=== PATIENT | female | born 1955 | race Caucasian/White ===

== ENCOUNTER 2017-07-13 07:49 | Emergency (ER) | payer SELFPAY ==
--- NOTE | 2017-07-13 09:55 | ER Document Report ---
ED Fall - General Chief Complaint: Fall Injury Stated Complaint: FALL/BACK PAIN Time Seen by Provider: 07/13/17 09:27 Notes: The patient is a 62-year-old female, past medical history chronic back pain, anxiety on Xanax, presents after she slipped out of a chair twice this morning. Patient says she had some mild left lower back pain, but she always has this pain. witnessed the fall and said she did not hit her head. No other acute findings. Patient denies headache, numbness, tingling, chest pain, shortness of breath, open wounds, fevers, urinary symptoms, saddle anesthesia or change in bowel or bladder. TRAVEL OUTSIDE OF THE [place] IN LAST 30 DAYS: No - Related data Allergies/Adverse Reactions: codeine [Codeine] Allergy (Severe, Verified 07/13/17 07:54) hydromorphone HCl [From Dilaudid] Allergy (Severe, Verified 07/13/17 07:54) lorazepam [From Ativan] Allergy (Severe, Verified 07/13/17 07:54) tetracycline [Tetracycline] Allergy (Severe, Verified 07/13/17 07:54) ampicillin sodium [From Unasyn] Allergy (Intermediate, Verified 07/13/17 07:54) Generalized rash sulbactam sodium [From Unasyn] Allergy (Intermediate, Verified 07/13/17 07:54) Generalized rash ibuprofen [Ibuprofen] Allergy (Unknown, Verified 07/13/17 07:54) Past Medical History - General Information source: Patient, Relative - Social History Smoking Status: Current Every Day Smoker Frequency of alcohol use: None Drug Abuse: None Family History: DM, Hypertension Patient has suicidal ideation: No Patient has homicidal ideation: No - Past Medical History Cardiac Medical History: Reports: Hx Hypercholesterolemia, Hx Hypertension Denies: Hx Atrial Fibrillation, Hx Congestive Heart Failure, Hx Coronary Artery Disease, Hx Heart Attack, Hx Peripheral Vascular Disease, Hx Pulmonary Embolism, Hx Heart Murmur Pulmonary Medical History: Reports: Hx Asthma, Hx Bronchitis, Hx COPD, Hx Pneumonia, Hx Sleep Apnea Denies: Hx Respiratory Failure, Hx Tuberculosis Endocrine Medical History: Reports: Hx Hypothyroidism. Denies: Hx Graves' Disease, Hx Hyperthyroidism Renal/ Medical History: Denies: Hx End Stage Renal Disease, Hx Kidney Stones, Hx Peritoneal Dialysis Malignancy Medical History: Denies: Hx Lung Cancer GI Medical History: Reports: Hx Gastroesophageal Reflux Disease, Hx Hiatal Hernia, Hx Irritable Bowel. Denies: Hx Crohn's Disease, Hx Liver Failure, Hx Pancreatitis, Hx Ulcer Musculoskeltal Medical History: Reports Hx Arthritis, Denies Hx Fibromyalgia, Denies Hx Muscular Dystrophy Skin Medical History: Reports Hx MRSA Psychiatric Medical History: Reports: Hx Depression Denies: Hx Bipolar Disorder, Hx Post Traumatic Stress Disorder, Hx Schizophrenia Traumatic Medical History: Reports: Hx Fractures - Right ankle "years ago" Past Surgical History: Reports: Hx Appendectomy, Hx Cholecystectomy, Hx Colostomy. Denies: Hx Bowel Surgery, Hx Section, Hx Coronary Artery Bypass Graft, Hx Gastric Bypass Surgery, Hx Herniorrhaphy, Hx Hysterectomy, Hx Mastectomy, Hx Pacemaker, Hx Tonsillectomy, Hx Tubal Ligation - Immunizations Immunizations up to date: Yes Hx Diphtheria, Pertussis, Tetanus Vaccination: Yes Hx Pneumococcal Vaccination: 03/28/10 Review of Systems - Review of Systems Notes: REVIEW OF SYSTEMS: CONSTITUTIONAL: -fevers, -chills EENT: -eye pain, -difficulty swallowing, -nasal congestion CARDIOVASCULAR: -chest pain, -syncope. RESPIRATORY: -cough, -SOB GASTROINTESTINAL: -abdominal pain, -nausea, -vomiting, -diarrhea GENITOURINARY: -dysuria, -hematuria MUSCULOSKELETAL: +back pain, -neck pain SKIN: -rash or skin lesions. HEMATOLOGIC: -easy bruising or bleeding. LYMPHATIC: -swollen, enlarged glands. NEUROLOGICAL: -altered mental status or loss of consciousness, -headache, - neurologic symptoms PSYCHIATRIC: -anxiety, -depression. ALL OTHER SYSTEMS REVIEWED AND NEGATIVE. Physical Exam - Vital signs Vitals: Temp Pulse Resp BP Pulse Ox 97.5 F 75 20 150/134 H 99 07/13/17 08:03 07/13/17 08:03 07/13/17 08:03 07/13/17 08:03 07/13/17 08:03 - Notes Notes: PHYSICAL EXAMINATION: GENERAL: Well-appearing, well-nourished and in no acute distress. Sleepy, but will awake to voice and talk. HEAD: Atraumatic, normocephalic. EYES: Pupils equal round and reactive to light, extraocular movements intact, sclera anicteric, conjunctiva are normal. ENT: nares patent, oropharynx clear without exudates. Moist mucous membranes. NECK: Normal range of motion, supple without lymphadenopathy LUNGS: Breath sounds clear to auscultation bilaterally and equal. No wheezes rales or rhonchi. HEART: Regular rate and rhythm without murmurs ABDOMEN: Soft, nontender, normoactive bowel sounds. No guarding, no rebound. No masses appreciated. EXTREMITIES: Normal range of motion, no pitting or edema. No cyanosis. BACK: No midline back pain. Mild tenderness over left lower back. No signs of trauma. NEUROLOGICAL: Cranial nerves grossly intact. Normal speech, normal gait. Normal sensory and motor exams. PSYCH: Normal mood, normal affect. SKIN: Warm, Dry, normal turgor, no rashes or lesions noted. Course - Re-evaluation Re-evalutation: Patient's back pain is chronic in nature. She did not suffer any serious injuries from sliding out of her chair earlier today. Patient took Xanax just prior to arrival and has not slept tonight, according to the . Instructed patient and to be careful about her benzo use as this may be causing her sleepiness. Other vitals are normal, other than hypertension. She will follow with her primary care physician for further evaluation and treatment. - Vital Signs Vital signs: Temp Pulse Resp BP Pulse Ox 97.5 F 75 18 150/134 H 99 07/13/17 08:03 07/13/17 08:03 07/13/17 09:14 07/13/17 08:03 07/13/17 08:03 Discharge - Discharge Clinical Impression: Contusion, back Qualifiers: Encounter type: initial encounter Laterality: left Qualified Code(s): S20.222A - Contusion of left back wall of thorax, initial encounter Condition: Stable Disposition: HOME, SELF-CARE Additional Instructions: There were no injuries noted from your fall. You may use some heating pads for your chronic back pain. Follow-up with your primary care physician. Your Xanax may be making you more tired than normal. Contusion Your injury has resulted in a contusion -- a crushing of the deep tissues. No injury to important structures was detected during the physician's exam. Contusions vary in the amount of pain they cause, and in the length of time required for healing. Typically, the area will become bruised, and will remain painful to touch for two or three weeks. However, most patients are back to working and playing within a few days. After the initial period of rest and cold-packs, your symptoms (together with the doctor's recommendations) will determine how rapidly you can get back to full activity. Usually this means "do what feels okay, but don't do things that hurt." If re-examination was recommended, it's important to follow up as instructed. Call the doctor or return any time if pain increases, if swelling becomes severe, if you develop numbness or weakness in an injured extremity, or if any other alarming symptoms occur. Forms: Elevated Blood Pressure
[2017-07-13] MEDS ORDERED: LIDOCAINE 5% (700 MG) TRANSDERMAL ADH..PATCH TP ONE (11:29)
[2017-07-13] MEDS ORDERED: ACETAMINOPHEN 325 MG TABLET PO ONE (11:29)
[2017-07-13] MEDS: NORMAL SALINE 1000 ML 1,000 ML IV PRN ×2 (13:08→13:10)
[2017-07-13] MEDS ORDERED: EPINEPHRINE INJ 1 MG/10 ML DISP.SYRIN IV ONE (13:22)
[2017-07-13] MEDS ORDERED: NOREPINEPHRINE BITARTRATE INJ/PF 4 MG/4 ML SDV IV ONE ×2 (13:26→18:36)
[2017-07-13] MEDS ORDERED: EPINEPHRINE INJ 30 MG/30 ML VIAL ONE (13:27)
[2017-07-13] MEDS ORDERED: FENTANYL CITRATE INJ/PF 100 MCG/2 ML AMPUL ONE (13:38)
[2017-07-13] MEDS: DEXTROSE 5%-WATER 250 ML with NOREPINEPHRINE BITARTRATE 4 MG IV PRN ×4 (13:39→18:41)
[2017-07-13] MEDS ORDERED: PROPOFOL 100 ML IV ONE (13:50)
--- NOTE | 2017-07-13 14:00 | ER Document Report ---
ED Resuscitation - General Chief Complaint: Fall Injury Stated Complaint: FALL/BACK PAIN Time Seen by Provider: 07/13/17 09:27 Notes: As patient was being wheeled out of her room to her car, she was wide awake and in no acute distress. She began to hold her breath, which her said she has been doing for the past few days. She got out of the wheelchair into her car. The nurse and tech noticed that she was holding her breath for a long time. They tried ammonia salts without any change in her breath-holding. They came and got me. She was found to be cyanotic and without any respirations. Pulse check was attempted and no femoral pulse. CPR was started in her car and she was moved to a stretcher and then the trauma bay. Patient was hooked up to the monitor she was found to be in V. fib. Narcan was given. She was defibrillated and CPR was continued. Pt then went into PEA. Patient was intubated with a 7.5 tube using a glide scope with some gastric contents in her mouth during the intubation. Patient regained a pulse after 3 rounds of CPR and 2 rounds of epinephrine (see RN Code Sheet). EKG did not show a STEMI. Right IJ central line placed using ultrasound guidance for venous access and to give pressors. has been updated about events and answered all questions. Patient began to have purposeful movements and would breathe over the vent. She is not hypothermic protocol candidate due to these purposeful movement. Bedside ultrasound did not show a pericardial effusion and FAST exam was negative. No pneumothorax on lung sliding ultrasound or on chest x-ray. Patient was brought over to CAT scan due to the minor fall she had earlier in the day out of the chair to assess for any traumatic injuries. Her primary care physician is Dr. Ba. She requires ICU admission for further evaluation and treatment. TRAVEL OUTSIDE OF THE [place] IN LAST 30 DAYS: No - Related Data Allergies/Adverse Reactions: codeine [Codeine] Allergy (Severe, Verified 07/13/17 07:54) hydromorphone HCl [From Dilaudid] Allergy (Severe, Verified 07/13/17 07:54) lorazepam [From Ativan] Allergy (Severe, Verified 07/13/17 07:54) tetracycline [Tetracycline] Allergy (Severe, Verified 07/13/17 07:54) ampicillin sodium [From Unasyn] Allergy (Intermediate, Verified 07/13/17 07:54) Generalized rash sulbactam sodium [From Unasyn] Allergy (Intermediate, Verified 07/13/17 07:54) Generalized rash ibuprofen [Ibuprofen] Allergy (Unknown, Verified 07/13/17 07:54) Past Medical History - General Information source: Patient, Relative - Social History Smoking Status: Current Every Day Smoker Frequency of alcohol use: None Drug Abuse: None Family History: DM, Hypertension Patient has suicidal ideation: No Patient has homicidal ideation: No - Past Medical History Cardiac Medical History: Reports: Hx Hypercholesterolemia, Hx Hypertension Denies: Hx Atrial Fibrillation, Hx Congestive Heart Failure, Hx Coronary Artery Disease, Hx Heart Attack, Hx Peripheral Vascular Disease, Hx Pulmonary Embolism, Hx Heart Murmur Pulmonary Medical History: Reports: Hx Asthma, Hx Bronchitis, Hx COPD, Hx Pneumonia, Hx Sleep Apnea Denies: Hx Respiratory Failure, Hx Tuberculosis Endocrine Medical History: Reports: Hx Hypothyroidism. Denies: Hx Graves' Disease, Hx Hyperthyroidism Renal/ Medical History: Denies: Hx End Stage Renal Disease, Hx Kidney Stones, Hx Peritoneal Dialysis Malignancy Medical History: Denies: Hx Lung Cancer GI Medical History: Reports: Hx Gastroesophageal Reflux Disease, Hx Hiatal Hernia, Hx Irritable Bowel. Denies: Hx Crohn's Disease, Hx Liver Failure, Hx Pancreatitis, Hx Ulcer Musculoskeltal Medical History: Reports Hx Arthritis, Denies Hx Fibromyalgia, Denies Hx Muscular Dystrophy Skin Medical History: Reports Hx MRSA Psychiatric Medical History: Reports: Hx Depression Denies: Hx Bipolar Disorder, Hx Post Traumatic Stress Disorder, Hx Schizophrenia Traumatic Medical History: Reports: Hx Fractures - Right ankle "years ago" Past Surgical History: Reports: Hx Appendectomy, Hx Cholecystectomy, Hx Colostomy. Denies: Hx Bowel Surgery, Hx Section, Hx Coronary Artery Bypass Graft, Hx Gastric Bypass Surgery, Hx Herniorrhaphy, Hx Hysterectomy, Hx Mastectomy, Hx Pacemaker, Hx Tonsillectomy, Hx Tubal Ligation - Immunizations Immunizations up to date: Yes Hx Diphtheria, Pertussis, Tetanus Vaccination: Yes Hx Pneumococcal Vaccination: 03/28/10 Physical Exam - Vital signs Vitals: Temp Pulse Resp BP Pulse Ox 97.5 F 75 20 150/134 H 99 07/13/17 08:03 07/13/17 08:03 07/13/17 08:03 07/13/17 08:03 07/13/17 08:03 Course - Re-evaluation Re-evalutation: Patient confirmed to be hyponatremic. Prior visits compared and her lowest was 116. Unsure if this is from an ACTH-secreting tumor, Legionella or psychogenic polydipsia. Will continue to closely monitor to avoid osmotic demyelination. Pt requires transfer to a facility with an securities attorney and neurosurgeon for her T10 fracture. Pt with possible multifocal pneumonia, leukocytosis and hypothermia with hypotension. Treated her for septic shock for 30 mL/kg and broad-spectrum Abx. 07/13/17 15:[address] Richardson ([facility]) and he has accepted patient for transfer. ICU beds are tight. kept informed. 07/13/17 15:50 Spoke to [facility] and they also do not have any ICU beds. - Vital Signs Vital signs: Temp Pulse Resp BP Pulse Ox 96.5 F L 61 26 H 100/57 L 96 07/13/17 16:45 07/13/17 16:45 07/13/17 18:51 07/13/17 18:51 07/13/17 18:51 - Laboratory Result Diagrams: 07/13/17 13:49 07/13/17 18:06 Laboratory results interpreted by me: 07/13/17 07/13/17 07/13/17 13:49 13:49 13:49 WBC 20.5 H RBC 3.47 L Hgb 10.3 L Hct 28.7 L Seg Neuts % (Manual) 85 H Lymphocytes % (Manual) 7 L Metamyelocytes % 1 H Abs Neuts (Manual) 17.6 H APTT 43.6 H VBG pH Sodium 97.6 L* Potassium Chloride 62 L Carbon Dioxide 20 L BUN 2 L Creatinine 0.42 L Glucose 257 H Calcium 7.4 L AST 151 H ALT 96 H Total Protein 5.0 L Albumin 3.0 L Urine Protein Urine Glucose (UA) Urine Ketones Urine Blood Ur Leukocyte Esterase Urine Ascorbic Acid 07/13/17 07/13/17 07/13/17 14:57 14:57 16:44 WBC RBC Hgb Hct Seg Neuts % (Manual) Lymphocytes % (Manual) Metamyelocytes % Abs Neuts (Manual) APTT VBG pH 7.28 L Sodium 96.3 L* Potassium 3.1 L Chloride 63 L Carbon Dioxide 21 L BUN 2 L Creatinine 0.43 L Glucose 241 H Calcium 7.3 L AST 150 H ALT 104 H Total Protein 5.0 L Albumin 2.9 L Urine Protein >=500 H Urine Glucose (UA) 150 H Urine Ketones TRACE H Urine Blood SMALL H Ur Leukocyte Esterase SMALL H Urine Ascorbic Acid 20 H 07/13/17 18:06 WBC RBC Hgb Hct Seg Neuts % (Manual) Lymphocytes % (Manual) Metamyelocytes % Abs Neuts (Manual) APTT VBG pH Sodium 95.0 L* Potassium 3.4 L Chloride 63 L Carbon Dioxide BUN 4 L Creatinine 0.49 L Glucose 257 H Calcium 7.5 L AST 149 H ALT 99 H Total Protein 4.9 L Albumin 2.9 L Urine Protein Urine Glucose (UA) Urine Ketones Urine Blood Ur Leukocyte Esterase Urine Ascorbic Acid - Diagnostic Test Radiology reviewed: Image reviewed, Reports reviewed Radiology results interpreted by me: CXR: Endotracheal tube tip midtrachea. Right jugular central line tip superior vena cava. Cardiomegaly with mild patchy bilateral upper lobe airspace disease and pulmonary vascular congestion worrisome for pulmonary edema and fluid overload . Gaseous distention of the stomach fundus. CT Head: Very limited negative study. CT C-spine: NAD CT Chest/A/P: Anterior right 1st through 7th acute rib fractures. Anterior left 2nd through 5th acute rib fractures T10 vertebral body fracture. Multifocal airspace disease atelectasis versus pneumonia. No liver or spleen injury. - EKG Interpretation by Me Rate: Tachycardia Rhythm: A.Fib Additional EKG results interpreted by me: No STEMI on EKG obtained immediately after ROSC. Procedures - Central Line Right Internal jugular Time completed: 13:55 Consent obtained: Yes Central line pre-insertion: Sterile PPE donned, Chloraprep applied, Sterile drapes applied Central line size (Fr.): 18 Central line lumen type: Triple Anesthetic type: 1% Lidocaine mL's of anesthesia: 5 Ultrasound guided: Yes CM at insertion site: 16 Line secured with sutures: Yes Central line post-insertion: Blood return from lumens, Biopatch applied, Sutured , Sterile dressing applied, Position confirmed w/ CXR Number of attempts: 1 Complications: No - Intubation Orotracheal Time of Intubation: 13:45 Airway evaluation: Normal anatomy, Obese Mallampati Classification: Class 3 Intubation method: Orotracheal Blade type: Rangel Blade size: 4 Equipment used: Glidescope ETT size: 7.5 ETT secured at: Teeth ETT secured at (cm): 23 Breath Sounds after Intubation: Equal End tidal CO2 confirmed: Yes Ventilator settings: AC Post Intubation Xray: Yes Intubation Complications: No complications, Apparent aspiration Critical Care Note - Critical Care Note Total time excluding time spent on procedures (mins): 55 Discharge - Discharge Clinical Impression: Cardiac arrest, Multifocal pneumonia, Septic shock, Hyponatremia T10 vertebral fracture Qualifiers: Encounter type: initial encounter Fracture type: closed Fracture morphology: unspecified fracture morphology Qualified Code(s): S22.079A - Unspecified fracture of T9-T10 vertebra, initial encounter for closed fracture Multiple rib fractures Qualifiers: Encounter type: initial encounter Fracture type: closed Laterality: bilateral Qualified Code(s): S22.43XA - Multiple fractures of ribs, bilateral, initial encounter for closed fracture Condition: Critical Disposition: [facility] Referrals: GREG BA MD [Primary Care Provider] - Follow up as needed
[2017-07-13] MEDS ORDERED: NALOXONE HCL INJ 2 MG/2 ML DISP.SYRIN IV ONE (14:04)
[2017-07-13 14:05] LABS: INTERNATIONAL RATION (INR) 1.01
[2017-07-13 14:06] LABS: PARTIAL THROMBOPLASTIN TIME 43.6 SEC (23.5-35.8)
[2017-07-13 14:16] LABS: HEMATOCRIT 28.7 % (36.0-47.0); HEMOGLOBIN 10.3 g/dL (12.0-15.5); MEAN CORPUSCULAR HEMOGLOBIN 29.6 pg (27.0-33.4); MEAN CORPUSCULAR HGB CONC 35.7 g/dL (32.0-36.0); MEAN CORPUSCULAR VOLUME 83 fl (80-97); PLATELET COUNT 281 10^3/uL (150-450); RED BLOOD COUNT 3.47 10^6/uL (3.72-5.28); RED CELL DISTRIBUTION WIDTH 12.9 % (11.5-14.0); WHITE BLOOD COUNT 20.5 10^3/uL (4.0-10.5)
[2017-07-13 14:18] LABS: ALANINE AMINOTRANSFERASE 96 U/L (9-52); ALKALINE PHOSPHATASE 76 U/L (38-126); ANION GAP 16 (5-19); ASPARTATE AMINO TRANSFERASE 151 U/L (14-36); BILIRUBIN,DIRECT 0.2 mg/dL (0.0-0.4); BILIRUBIN,TOTAL 0.4 mg/dL (0.2-1.3); BLOOD UREA NITROGEN 2 mg/dL (7-20); CALCIUM 7.4 mg/dL (8.4-10.2); CARBON DIOXIDE 20 mmol/L (22-30); CHLORIDE 62 mmol/L (98-107); GLUCOSE 257 mg/dL (75-110); LIPASE 242.5 U/L (23-300); POTASSIUM 3.7 mmol/L (3.6-5.0)
[2017-07-13 14:23] LABS: SODIUM 97.6 mmol/L (137-145)
[2017-07-13 14:30] LABS: TROPONIN I 0.018 ng/mL
[2017-07-13 14:35] LABS: ABSOLUTE LYMPHOCYTES# (MANUAL) 2.3 10^3/uL (0.5-4.7); ABSOLUTE MONOCYTES # (MANUAL) 0.6 10^3/uL (0.1-1.4); ABSOLUTE NEUTROPHILS# (MANUAL) 17.6 10^3/uL (1.7-8.2); BASOPHILS % (MANUAL) 0 % (0-2); EOSINOPHILS % (MANUAL) 0 % (0-6); LYMPHOCYTES % (MANUAL) 7 % (13-45); METAMYELOCYTES % (MANUAL) 1 % (0); MONOCYTES % (MANUAL) 3 % (3-13); SEGMENTED NEUTROPHILS % (MAN) 85 % (42-78); TOTAL CELLS COUNTED 100
[2017-07-13 14:37] LABS: BURR CELLS 1+; PLATELET COMMENT ADEQUATE; POIKILOCYTOSIS 1+; TOXIC GRANULATION SLIGHT
--- NOTE | 2017-07-13 14:40 | RADIOLOGY REPORT (SQ) ---
EXAM DESCRIPTION: CHEST SINGLE VIEW COMPLETED DATE/TIME: 07/13/2017 2:07 pm REASON FOR STUDY: intubation COMPARISON: AP chest 02/13/2015 EXAM PARAMETERS: NUMBER OF VIEWS: One view. TECHNIQUE: Single frontal radiographic view of the chest acquired. RADIATION DOSE: NA LIMITATIONS: Portable film, defibrillator pads over the chest, large patient FINDINGS: Endotracheal tube tip 4 to 5 cm above the igor. Right jugular central line tip superior vena cava. LUNGS AND PLEURA: Pulmonary vascular congestion with patchy left upper lobe and right upper lobe airs pace disease, edema versus pneumonia. No pleural effusion. No pneumothorax. MEDIASTINUM AND HILAR STRUCTURES: No masses. Contour normal. HEART AND VASCULAR STRUCTURES: Mild cardiomegaly BONES: No acute findings. HARDWARE: None in the chest. OTHER: Moderate gaseous distention of the stomach fundus IMPRESSION: Endotracheal tube tip midtrachea. Right jugular central line tip superior vena cava Cardiomegaly with mild patchy bilateral upper lobe airspace disease and pulmonary vascular congestion worrisome for pulmonary edema and fluid overload Gaseous distention of the stomach fundus TECHNICAL DOCUMENTATION: JOB ID: [id number] [employer]- All Rights Reserved
--- NOTE | 2017-07-13 15:03 | RADIOLOGY REPORT (SQ) ---
EXAM DESCRIPTION: CT HEAD WITHOUT COMPLETED DATE/TIME: 07/13/2017 2:48 pm REASON FOR STUDY: AMS COMPARISON: None. TECHNIQUE: Axial images acquired through the brain without intravenous contrast. Images reviewed wi th bone, brain and subdural windows. Images stored on PACS. All CT scanners at this facility use dose modulation, iterative reconstruction, and/or weight based d osing when appropriate to reduce radiation dose to as low as reasonably achievable (ALARA). [facility]: Dose Right [facility]: CareDose [facility]: Dose Right [facility]: Teradose 4D [facility]: [employer] RADIATION DOSE: CT Rad equipment meets quality standard of care and radiation dose reduction techniq ues were employed. CTDIvol: 61.3 mGy. DLP: 1421 mGy-cm. mGy. LIMITATIONS: Motion artifact throughout the study FINDINGS: Motion artifact throughout the study. No gross acute large territory infarct, acute intra cranial hemorrhage, mass effect, or midline shift. No depressed skull fracture. Minimal ethmoid air cell fluid. These findings were discussed with Dr. Pate IMPRESSION: Very limited negative study EVIDENCE OF ACUTE STROKE: NO. COMMENT: Quality ID # [id number]: Final reports with documentation of one or more dose reduction techniques (e.g., Automated exposure control, adjustment of the mA and/or kV according to patient size, use of iterative reconstruction technique) TECHNICAL DOCUMENTATION: JOB ID: [id number] [employer]- All Rights Reserved
--- NOTE | 2017-07-13 15:06 | RADIOLOGY REPORT (SQ) ---
EXAM DESCRIPTION: CT CERVICAL SPINE WITHOUT COMPLETED DATE/TIME: 07/13/2017 2:48 pm REASON FOR STUDY: fall out of chair cardiac arrest COMPARISON: None. TECHNIQUE: Axial images acquired through the cervical spine without intravenous contrast. Images re viewed with lung, soft tissue and bone windows. Reconstructed coronal and sagittal MPR images review ed. Images stored on PACS. All CT scanners at this facility use dose modulation, iterative reconstruction, and/or weight based d osing when appropriate to reduce radiation dose to as low as reasonably achievable (ALARA). [facility]: Dose Right [facility]: CareDose [facility]: Dose Right [facility]: Teradose 4D [facility]: Smart [place] [employer] RADIATION DOSE: CT Rad equipment meets quality standard of care and radiation dose reduction techniq ues were employed. CTDIvol: 31.4 mGy. DLP: 515 mGy-cm. mGy. LIMITATIONS: None. FINDINGS: Present endotracheal tube with the tip below the field of view. There is a nasogastric tu be coiled in the patient's pharynx best shown on axial image 14. ALIGNMENT: Anatomic. MINERALIZATION: Normal. VERTEBRAL BODIES: No fractures or dislocation. DISCS: Mild diffuse posterior disc bulge and bony spurring at C5-6 right greater than left, with mode rate right foraminal narrowing. Mild diffuse posterior disc bulge and bony spurring at C6-7 left gre ater than right with moderate left foraminal narrowing. FACETS, LATERAL MASSES, POSTERIOR ELEMENTS: No fractures. No dislocation. No acute findings. HARDWARE: None in the spine. VISUALIZED RIBS: No fractures. LUNG APICES AND SOFT TISSUES: Lung apices not included in the field of view. Right jugular central l ine is present. Calcified 1 cm nodule left lobe thyroid OTHER: No other significant finding. IMPRESSION: No acute fracture or malalignment Nasogastric tube is coiled in the patient's pharynx. TECHNICAL DOCUMENTATION: JOB ID: [id number] Quality ID # [id number]: Final reports with documentation of one or more dose reduction techniques (e.g., Au tomated exposure control, adjustment of the mA and/or kV according to patient size, use of iterative reconstruction technique) 2010 [employer]- All Rights Reserved
[2017-07-13 15:21] LABS: VENOUS BLOOD BASE EXCESS -3.7 mmol/L; VENOUS BLOOD HCO3 23.4 mmol/L (20-32); VENOUS BLOOD PCO2 51.6 mmHg (35-63); VENOUS BLOOD PH 7.28 (7.30-7.42)
--- NOTE | 2017-07-13 15:25 | RADIOLOGY REPORT (SQ) ---
EXAM DESCRIPTION: CT CHEST WITH; CT ABD/PELVIS WITH IV ONLY COMPLETED DATE/TIME: 07/13/2017 2:48 pm REASON FOR STUDY: fall, cardiac arrest COMPARISON: CT brain and cervical spine same date CONTRAST TYPE AND DOSE: contrast/concentration: Isovue 300.00 mg/ml; Total Contrast Delivered: 85.8 ml; Total Saline Delivered: 22.0 ml RENAL FUNCTION: Deferred by the emergency room physician TECHNIQUE: CT scan of the chest performed using helical scanning technique with dynamic intravenous contrast injection. Images reviewed with lung, soft tissue and bone windows. Reconstructed coronal a nd sagittal MPR images reviewed. All images stored on PACS. CT scan of the abdomen and pelvis performed with intravenous and without oral contrastusing helical s brett technique with dynamic intravenous contrast injection. Images reviewed with lung, soft tissu e and bone windows. Reconstructed coronal and sagittal MPR images reviewed. Delayed images for eval uation of the urinary system also acquired and evaluated. All images stored on PACS. All CT scanners at this facility use dose modulation, iterative reconstruction, and/or weight based d osing when appropriate to reduce radiation dose to as low as reasonably achievable (ALARA). [facility]: Dose Right [facility]: CareDose [facility]: Dose Right [facility]: Teradose 4D [facility]: [employer] RADIATION DOSE: CT Rad equipment meets quality standard of care and radiation dose reduction techniq ues were employed. CTDIvol: 9.6 - 21.0 mGy. DLP: 2016 mGy-cm. . LIMITATIONS: None. FINDINGS: CHEST: LUNGS AND PLEURA: There are multiple bilateral anterior rib fractures, mildly displaced. Trace amoun t of pleural space air and fluid adjacent to the right anterior 3rd and 4th rib fractures. No large pneumothorax. There is minimal right apical patchy airspace disease, and more focal dense consolidation in the medi al right and medial left lung bases. HILAR AND MEDIASTINAL STRUCTURES: No identified masses or abnormal nodes. HEART AND VASCULAR STRUCTURES: No aneurysm or dissection. No central pulmonary emboli. No pericardi al effusion. Very mild coronary artery calcifications. HARDWARE: Endotracheal tube tip midtrachea. Right jugular central line tip in the superior vena cava . Patient's nasogastric tube is coiled in the pharynx. THYROID AND OTHER SOFT TISSUES: No masses. No adenopathy. BONES: Acute mildly displaced fractures of the right anterior 1st through 7th ribs. Trace pleural sp mera fluid and air adjacent to the right anterior 3rd and 4th rib fractures. Nondisplaced anterior left 2nd through 5th rib fractures. At the T10 level, an acute fracture through the vertebral body is present with widening of the fractu re line anteriorly, best shown on sagittal reconstruction images 47-53. This is not appear to extend into the posterior elements At T8-9, bulky bony spurring along the dorsal aspect of the disc margin is present causing high-grade central canal stenosis OTHER: This report was called to Dr. Pate ABDOMEN AND PELVIS: LIVER: Normal size. No masses. No dilated ducts. SPLEEN: Normal size. No focal lesions. PANCREAS: No masses. No significant calcifications. No adjacent inflammation or peripancreatic fluid collections. Pancreatic duct not dilated. GALLBLADDER: Surgically absent ADRENAL GLANDS: No significant masses or asymmetry. RIGHT KIDNEY AND URETER: No solid masses. 1.8 cm cyst posterior right mid-pole kidney. No significa nt calcification. No hydronephrosis or hydroureter. LEFT KIDNEY AND URETER: No solid masses. No significant calcification. No hydronephrosis or hydrouret er. AORTA AND VESSELS: No aneurysm. No dissection. Renal arteries, SMA, celiac without stenosis. RETROPERITONEUM: No retroperitoneal adenopathy, hemorrhage or masses. BOWEL AND PERITONEAL CAVITY: No masses or inflammatory changes. No free fluid or peritoneal masses. APPENDIX: Normal. ABDOMINAL WALL: No masses. No hernias. BONES: Acute T10 vertebral body fracture through the anterior bony cortex with widening of the fractu re line, best shown on sagittal reconstruction images 54-57. Bony structures in the field of view ar e otherwise unremarkable. PELVIS: Kennedy catheter drains the urinary bladder. Normal size post menopausal female pelvic organs. No free pelvic fluid. IMPRESSION: Anterior right 1st through 7th acute rib fractures. Anterior left 2nd through 5th acute rib fractures T10 vertebral body fracture Multifocal airspace disease atelectasis versus pneumonia No liver or spleen injury. TECHNICAL DOCUMENTATION: JOB ID: [id number] Quality ID # [id number]: Final reports with documentation of one or more dose reduction techniques (e.g., Au tomated exposure control, adjustment of the mA and/or kV according to patient size, use of iterative reconstruction technique) 2010 [employer]- All Rights Reserved
[2017-07-13] MEDS ORDERED: VANCOMYCIN HCL INJ 1000 MG VIAL IV ONE (15:36)
[2017-07-13] MEDS ORDERED: LEVOFLOXACIN 750 MG/D5W RTU 750 MG/150 ML RTUPB IV ONE (15:36)
[2017-07-13] MEDS ORDERED: SODIUM BICARBONATE 8.4% INJ 50 MEQ/50 ML DISP.SYRIN IV ONE (15:37)
[2017-07-13] MEDS ORDERED: CEFEPIME 1 GM/D5W RTU 1 GM/50 ML RTUPB IV ONE (15:37)
[2017-07-13] MEDS ORDERED: CALCIUM GLUCONATE 1000 MG/10 ML INJ IV ONE (15:37)
[2017-07-13 15:38] LABS: ALANINE AMINOTRANSFERASE 104 U/L (9-52); ALBUMIN 2.9 g/dL (3.5-5.0); ALKALINE PHOSPHATASE 80 U/L (38-126); ANION GAP 12 (5-19); ASPARTATE AMINO TRANSFERASE 150 U/L (14-36); BILIRUBIN,DIRECT 0.3 mg/dL (0.0-0.4); BILIRUBIN,TOTAL 0.4 mg/dL (0.2-1.3); BLOOD UREA NITROGEN 2 mg/dL (7-20); CALCIUM 7.3 mg/dL (8.4-10.2); CARBON DIOXIDE 21 mmol/L (22-30); CHLORIDE 63 mmol/L (98-107); GLUCOSE 241 mg/dL (75-110); POTASSIUM 3.1 mmol/L (3.6-5.0)
[2017-07-13 15:44] LABS: SODIUM 96.3 mmol/L (137-145)
--- NOTE | 2017-07-13 16:00 | RADIOLOGY REPORT (SQ) ---
EXAM DESCRIPTION: CHEST SINGLE VIEW COMPLETED DATE/TIME: 07/13/2017 3:30 pm REASON FOR STUDY: og placement COMPARISON: Chest CT scan dated 07/13/2017 EXAM PARAMETERS: NUMBER OF VIEWS: One view. TECHNIQUE: Single frontal radiographic view of the chest acquired. RADIATION DOSE: NA LIMITATIONS: None. FINDINGS: LUNGS AND PLEURA: No opacities, masses or pneumothorax. No pleural effusion. MEDIASTINUM AND HILAR STRUCTURES: No masses. Contour normal. HEART AND VASCULAR STRUCTURES: Heart normal in size. Normal vasculature. BONES: The previously described right rib fractures are not well visualized on the plain chest x-ray. HARDWARE: Endotracheal tube is identified with its tip just above the level of the aortic arch. NG t ube is seen in course to the abdomen. Central line is seen with its tip the level of the superior ve na cava P OTHER: No other significant finding. IMPRESSION: No acute consolidations or pleural effusions. Other findings as noted above TECHNICAL DOCUMENTATION: JOB ID: [id number] [employer]- All Rights Reserved
[2017-07-13] MEDS: PROPOFOL 100 ML IV PRN ×2 (16:09→18:41)
[2017-07-13] MEDS ORDERED: POTASSI CL 20 MEQ/50 ML RIDER 20 MEQ/50 ML RTUPB IV SCH (16:11)
[2017-07-13] MEDS ORDERED: VANCOMYCIN HCL INJ 1000 MG VIAL IV SCH (16:15)
[2017-07-13] MEDS ORDERED: FENTANYL CITRATE INJ/PF 100 MCG/2 ML AMPUL IV ONE (16:30)
[2017-07-13 17:33] LABS: APPEARANCE,URINE CLOUDY; BILIRUBIN,URINE NEGATIVE (NEGATIVE); COLOR,URINE YELLOW; GLUCOSE, URINE 150 mg/dL (NEGATIVE); KETONES,URINE TRACE mg/dL (NEGATIVE); LEUKOCYTE ESTERASE,URINE SMALL (NEGATIVE); NITRITE,URINE NEGATIVE (NEGATIVE); PROTEIN,URINE >=500 mg/dL (NEGATIVE); UROBILINOGEN,URINE NEGATIVE mg/dL (<2.0)
[2017-07-13 17:47] LABS: URINE AMPHETAMINES SCREEN NEGATIVE; URINE BARBITURATES SCREEN UNCONFIRMED POSITIVE; URINE BENZODIAZEPINES SCREEN UNCONFIRMED POSITIVE; URINE COCAINE SCREEN NEGATIVE; URINE MARIJUANA (THC) SCREEN NEGATIVE; URINE METHADONE SCREEN NEGATIVE; URINE PHENCYCLIDINE SCREEN NEGATIVE
[2017-07-13 18:53] LABS: A TYPE INFLUENZA AG NEGATIVE (NEGATIVE)
[2017-07-13 18:54] LABS: B INFLUENZA AG NEGATIVE (NEGATIVE)
[2017-07-13 18:54] LABS: ALANINE AMINOTRANSFERASE 99 U/L (9-52); ALBUMIN 2.9 g/dL (3.5-5.0); ALKALINE PHOSPHATASE 79 U/L (38-126); ASPARTATE AMINO TRANSFERASE 149 U/L (14-36); BILIRUBIN,DIRECT 0.3 mg/dL (0.0-0.4); BILIRUBIN,TOTAL 0.4 mg/dL (0.2-1.3); BLOOD UREA NITROGEN 4 mg/dL (7-20); CALCIUM 7.5 mg/dL (8.4-10.2); CARBON DIOXIDE 25 mmol/L (22-30); CHLORIDE 63 mmol/L (98-107); GLUCOSE 257 mg/dL (75-110); POTASSIUM 3.4 mmol/L (3.6-5.0); TOTAL PROTEIN 4.9 g/dL (6.3-8.2)
[2017-07-13 18:55] VITALS: BP 100/57
[2017-07-13 18:56] LABS: ANION GAP 7 (5-19)
--- NOTE | 2017-07-13 20:20 | EKG REPORT ---
SEVERITY:- ABNORMAL ECG - ATRIAL FIBRILLATION 3 BEAT VENTRICULAR PREMATURE COMPLEXES LEFT ANTERIOR FASCICULAR BLOCK PROBABLE LVH WITH SECONDARY REPOL ABNRM : Confirmed by: Keon Redman 13-Jul-2017 20:19:48
[2017-07-13] MEDS ORDERED: SODIUM BICARBONATE 8.4% INJ 50 MEQ/50 ML DISP.SYRIN ONE (21:23)
[2017-07-13] MEDS ORDERED: EPINEPHRINE INJ 1 MG/10 ML DISP.SYRIN ONE (21:23)
[2017-07-14] MEDS ORDERED: CEFEPIME 1 GM/D5W RTU 1 GM/50 ML RTUPB IV SCH (04:00)
[2017-07-14] MEDS ORDERED: LEVOFLOXACIN 750 MG/D5W RTU 750 MG/150 ML RTUPB IV SCH (10:00)
== END 2017-07-13 19:10 | disposition short-term general hospital (02) ==
LOC: ER 07:49
DX: A41.9 Sepsis, unspecified organism (principal); R65.21 Severe sepsis with septic shock; J44.0 Chronic obstructive pulmonary disease with (acute) lower respiratory infection; J18.9 Pneumonia, unspecified organism; I49.01 Ventricular fibrillation; I46.9 Cardiac arrest, cause unspecified; S22.43XA Multiple fractures of ribs, bilateral, initial encounter for closed fracture; S22.079A Unspecified fracture of T9-T10 vertebra, initial encounter for closed fracture; W07.XXXA Fall from chair, initial encounter; E87.1 Hypo-osmolality and hyponatremia; M54.5 Low back pain; G89.29 Other chronic pain; F17.200 Nicotine dependence, unspecified, uncomplicated; I10 Essential (primary) hypertension; F41.9 Anxiety disorder, unspecified; Z79.899 Other long term (current) drug therapy; Z88.5 Allergy status to narcotic agent; Z88.8 Allergy status to other drugs, medicaments and biological substances; Z88.1 Allergy status to other antibiotic agents; Z88.6 Allergy status to analgesic agent; Z86.14 Personal history of Methicillin resistant Staphylococcus aureus infection
CPT/HCPCS: 93005; 99291; 92950; 51702; 96375; 96365; 96367; 96368; 36415; 87040; 83690; 85025; 85610; 85730; 87077; 80053; 81001; 84484; 80307; 82803; 87804; 83880; 71045; 70450; 71260; 72125; 74177; 93010; 31500; 36556; C1751; J0610; J0171; J3010; J2704; J3490 ×2; J2310; J3480; J7060; J7030; J3370; J1956; J0692; 87186